=== PATIENT | male | born 1980 | race Caucasian/White ===

== ENCOUNTER 2019-04-04 22:47 | Emergency (ER) | payer OTHER ==
[~2019-04-04] VITALS: Ht 182.9 cm; Wt 115.7 kg
[~2019-04-04 22:47] MED LIST: CARBAMAZEPINE200 M3 PO; VICODIN 5-3001 EACH PO; ZYMAXID2.5 ML OPTH
[2019-04-05] MEDS ORDERED: OMEPRAZOLE20 MG PO (00:22)
--- NOTE | 2019-04-05 18:50 | EKG ---
[facility] [address] [facility] [place], [place] [address] Signed Sinus bradycardia Otherwise normal ECG No previous ECGs available Confirmed by IDANIA CLARK DO ([id number]) on 04/05/2019 6:50:09 PM Electronically Signed By: IDANIA CLARK DO 04/05/19 1850 PATIENT NAME: ANDREA KELLOGG Electrocardiogram DATE OF : 78 PHYSICIAN: IDANIA CLARK DO REPORT #: [id number] REPORT IS CONFIDENTIAL AND NOT TO BE RELEASED WITHOUT AUTHORIZATION
== END 2019-04-05 00:35 | disposition home or self-care (01) ==
LOC: ED 22:47
DX: R07.9 Chest pain, unspecified (principal); G40.909 Epilepsy, unspecified, not intractable, without status epilepticus; Z79.899 Other long term (current) drug therapy
CPT/HCPCS: 71045; 93005; 93010; 99285-25

== ENCOUNTER 2019-04-18 22:39 | Observation (INO) | payer OTHER ==
[~2019-04-18] VITALS: Ht 182.9 cm; Wt 117.9 kg
[~2019-04-18 22:39] MED LIST changes: +OMEPRAZOLE20 MG PO
[2019-04-18] MEDS ORDERED: ZOFRAN4 MG PO (22:53)
--- OUTSIDE RECORDS SUMMARY | 2019-04-19 03:25 | XMS ---
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 EPerla VISIT COUNT ([address] [facility] TOTAL 2 NOTE: Visits indicate total known visits. ED/UCC VISIT TRACKING (12 MO.) 04/18/2019 22:39 [facility] TYPE: Emergency COMPLAINT: - ABNORMAL LAB RESULTS 04/04/2019 22:47 [facility] TYPE: Emergency COMPLAINT: - CHEST PAIN DIAGNOSES: - Other assisted (current) drug therapy - Epilepsy, unsp, not intractable, without status epilepticus - Chest pain, unspecified INPATIENT VISIT TRACKING (12 MO.) No inpatient visits to display in this time frame [email or web address]
--- NOTE | 2019-04-19 05:34 | NUR ---
PT AND DECLINED SEIZURE PADS TO BED AT THIS TIME.
--- NOTE | 2019-04-19 05:36 | NUR ---
PT ADMITTED TO ROOM 107 VIA W/C FROM ED. TRANSFER TO BED W/O PROBLEMS. PT ACOMPANIED BY
--- NOTE | 2019-04-19 06:31 | NUR ---
PT RESTING IN BED WITH AT BEDSIDE. PT C/O CONSISTANT NAUSEA BUT HAPPY THAT VOMITING HAS STOPPED. BOTH PT AND WERE EXTREMELY ADMIATE ABOUT CONTINUING WITH MEDS PCP PRESCRIBED ON SUNDAY MORI. STATED IT THE ONLY THING THAT HAS STOPPED THE VOMITING SINCE SUNDAY. IV FLUIDS LR GOING AT 175 IN RT WRIST. LUNG SOUND CLEAR, BOWLE TONES ACTIVE. PT STATES AT HIS BASE LINE HE IS BRADYCARDIC, AND NORMALLY SLIGHTLY HYPOTENSIVE.
--- NOTE | 2019-04-19 06:35 | NUR ---
PT HAS HAD A ROUGTH FEW DAYS AND HAS FINALLY FOUND A MEDICATION COMBO THAT STOPS THE VOMITING. HE HAS CHOSEN TO CONTIUNE HOME MEDS UNTIL HOSPITALIST CAN SEE HIME. AT BEDSIDE. RESTING
--- NOTE | 2019-04-19 07:30 | NUR ---
Report received, orders acknowledged. Patient sleeping in bed, rouses to voice. Denies needs at this time, call light within reach.
--- NOTE | 2019-04-19 09:30 | NUR ---
Patient laying in bed, awake and alert. in room at bedside. LR running at 175 mls/hr. Breakfast ordered, patient diet order advance as tolerated. Patient denies pain but reports nausea. Will continue to monitor. Denies further needs at this time, call light within reach.
[2019-04-19] MEDS ORDERED: CARAFATE1 GM PO (09:49)
[2019-04-19] MEDS ORDERED: ONDANSETRON HCL4 MG PO (09:51)
--- NOTE | 2019-04-19 09:53 | NUR ---
MED REC COMPLETED. CARAFATE ADDED TO CURRENT MEDICATION LIST.
--- NOTE | 2019-04-19 10:40 | NUR ---
Patient sitting up in bed, awake and alert. at bedside. LR infusing at 175 mls/hr. Patient ate 100% of breakfast, denies pain or nausea. Patient up to bathroom, uses urinal to void. Returns to bed. Denies needs at this time, call light within reach.
--- NOTE | 2019-04-19 10:51 | NUR ---
Patient sitting up in bed watching tv. Post-op vitals complete, assessment complete. SpO2 of 96% on 2LNC. Left arm in charlette bandage and placed on pillows. Patient saline locked. Denies needs at this time, call light within reach.
--- NOTE | 2019-04-19 11:00 | NUR ---
Dr. Serrato in room to discuss POC with patient
--- NOTE | 2019-04-19 11:45 | NUR ---
Patient requests jello and ice water, which are provided. No lunch order placed, patient requests desire to order lunch later in the afternoon, if possible. Patient request granted. Denies further needs at this time, call light within reach.
--- NOTE | 2019-04-19 14:54 | NUR ---
Dr. Serrato in room to discuss POC with patient
--- NOTE | 2019-04-19 16:00 | NUR ---
Discharge instructions given, all questions and concerns answered. Patient verbalizes understanding to call PCP for follow-up appointment. IV D/C'd, vital signs taken. All personal belongings collected. Patient leaves unit via wheelchair with nursing staff and family.
--- NOTE | 2019-04-19 16:21 | NUR ---
I ASKED PATIENT IF HE WOULD LIKE TO TAKE A SHOWER TODAY AND HE SAID HE TOOK ONE LAST NIGHT.
--- NOTE | 2019-04-24 16:51 | NUR ---
CALLED PT FOR FU, HE STATES HE IS FEELING MUCH BETTER THAN HE WAS BEFORE HE CAME INTO THE HOSPITAL. UNDERSTANDS HIS MEDICATIONS AND SIDE EFFECTS AND IS GOING TO BE SEEING HIS PROVIDER. HE DENIED QUESTIONS.
== END 2019-04-19 16:00 | disposition home or self-care (01) ==
LOC: ED 22:39 → MS 22:40
PROVIDERS: ADMIT Student in an Organized Health Care Education/Training Program
DX: N17.9 Acute kidney failure, unspecified (principal); R11.2 Nausea with vomiting, unspecified; G40.909 Epilepsy, unspecified, not intractable, without status epilepticus; K21.9 Gastro-esophageal reflux disease without esophagitis; Z79.899 Other long term (current) drug therapy
CPT/HCPCS: 36415; 76705; 80048; 81001; 96360; 96361; 96374; 96375; 99285-25; C9113; G0378; J2405; J7030; J7121

== ENCOUNTER 2019-04-22 21:57 | Emergency (ER) | payer OTHER ==
[~2019-04-22] VITALS: Ht 182.9 cm; Wt 113.4 kg
[~2019-04-22 21:57] MED LIST changes: +CARAFATE1 GM PO; +ONDANSETRON HCL4 MG PO; +ZOFRAN4 MG PO
--- OUTSIDE RECORDS SUMMARY | 2019-04-22 22:00 | XMS ---
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 Lio VISIT COUNT (12 MO.) [address] [place] [address] TOTAL 3 NOTE: Visits indicate total known visits. ED/UCC VISIT TRACKING (12 MO.) 04/22/2019 21:58 [facility] TYPE: Emergency COMPLAINT: - VOMITHING/HEADACHE/ABDOMINAL PAIN 04/18/2019 22:39 [facility] TYPE: Emergency COMPLAINT: - ABNORMAL LAB RESULTS 04/04/2019 22:47 [facility] TYPE: Emergency COMPLAINT: - CHEST PAIN DIAGNOSES: - Other mcc (current) drug therapy - Epilepsy, unsp, not intractable, without status epilepticus - Chest pain, unspecified INPATIENT VISIT TRACKING (12 MO.) 04/18/2019 22:40 [facility] TYPE: Observation COMPLAINT: - DEHYDRATION AIU DIAGNOSES: - Acute kidney failure, unspecified - Epilepsy, unsp, not intractable, without status epilepticus - Nausea with vomiting, unspecified - Gastro-esophageal reflux disease without esophagitis - Other mcc (current) drug therapy [id number]
[2019-04-23] MEDS ORDERED: REGLAN10 MG PO (00:26)
== END 2019-04-23 00:41 | disposition home or self-care (01) ==
LOC: ED 21:57
DX: R10.9 Unspecified abdominal pain (principal); R51 Headache
CPT/HCPCS: 70450; 74176; 80053; 80156; 81001; 83690; 83735; 85025; 96361; 96374; 96375; 99284-25; J1200; J2765; J7030

== ENCOUNTER 2020-02-14 11:44 | Emergency (ER) | payer OTHER ==
[~2020-02-14] VITALS: Ht 182.9 cm; Wt 120.2 kg
[~2020-02-14 11:44] MED LIST changes: +REGLAN10 MG PO
[2020-02-14] MEDS ORDERED: NORCO 7.5-3251 EACH PO (13:06)
== END 2020-02-14 13:32 | disposition home or self-care (01) ==
LOC: ED 11:44
DX: S92.145A Nondisplaced dome fracture of left talus, initial encounter for closed fracture (principal); W11.XXXA Fall on and from ladder, initial encounter; G40.909 Epilepsy, unspecified, not intractable, without status epilepticus; Z79.899 Other long term (current) drug therapy
CPT/HCPCS: 29515; 73610; 99283-25; A9270

== ENCOUNTER 2023-02-19 17:28 | Emergency (ER) | payer OTHER ==
[~2023-02-19] VITALS: Ht 182.9 cm; Wt 128.7 kg
[~2023-02-19 17:28] MED LIST changes: +NORCO 7.5-3251 EACH PO
[2023-02-19 17:45] LABS: BASOPHILS 1.2 % (0-2); EOSINOPHILS 2.9 % (0-6); HEMATOCRIT 43.1 % (35.0-50.0); HEMOGLOBIN 14.9 g/dL (12.0-18.0); LYMPHOCYTES 35.6 % (24-44); MCH 30.5 (27-36); MCHC 34.7 g/dl (30-36); MCV 88.1 fl (81-99); NEUTROPHILS 50.3 % (39-80); PLATELET COUNT 368 K/uL (140-440); RBC 4.89 M/ul (4.3-5.7); RDW 13.2 (10.5-15.0)
[2023-02-19 18:05] LABS: ALBUMIN 4.3 g/dL (3.4-5.0); ALBUMIN/GLOBULIN RATIO 1.16 (1.1-2.4); ANION GAP 14.9 (7-21); BILIRUBIN, TOTAL 0.4 ng/dL (0.2-1.0); BUN/CREATININE RATIO 20.73 (6.0-28.6); CALCIUM 8.8 mg/dL (8.5-10.1); CREATININE, SERUM 0.82 mg/dL (0.70-1.30); MAGNESIUM 1.9 mg/dL (1.8-2.4); POTASSIUM 3.9 mmol/L (3.5-5.1)
[2023-02-19] MEDS ORDERED: CYCLOBENZAPRINE10 MG PO (19:51)
[2023-02-19 20:21] VITALS: BP 137/96
--- NOTE | 2023-02-20 14:41 | EKG ---
[facility] [address] [facility] [place] [address] Signed Sinus rhythm with occasional premature ventricular complexes Nonspecific ST abnormality Abnormal ECG When compared with ECG of 04-APR-2019 22:51, premature ventricular complexes are now present Vent. rate has increased BY [address] now depressed in Anterior leads Confirmed by TAYLOR PATHAK MD ([id number]) on 02/20/2023 2:41:15 PM Electronically Signed By: TAYLOR PATHAK 02/20/23 1441 PATIENT NAME: ANDREA KELLOGG MERCEDES Electrocardiogram DATE OF : 78 PHYSICIAN: TAYLOR PATHAK REPORT #: [id number] REPORT IS CONFIDENTIAL AND NOT TO BE RELEASED WITHOUT AUTHORIZATION
== END 2023-02-19 20:22 | disposition home or self-care (01) ==
LOC: ED 17:28
PROVIDERS: Emergency Medicine
DX: R07.89 Other chest pain (principal); G40.802 Other epilepsy, not intractable, without status epilepticus; Z79.899 Other long term (current) drug therapy
CPT/HCPCS: 36415; 71045; 80053; 83735; 84484; 85025; 85379; 93005; 93010; A9270